=== PATIENT | female | born 1945 | race Caucasian/White ===

== ENCOUNTER 2017-12-15 18:00 | Emergency (ER) | payer MEDICARE, MEDICAID ==
[~2017-12-15] VITALS: Ht 157.5 cm; Wt 72.6 kg
--- NOTE | 2017-12-15 19:22 | NUR ---
SBAR REPORT GIVEN TO TAMIKO LARKIN RN
[2017-12-15 20:03] LABS: BASOPHILS % (AUTO) 0.4 % (0.0-2.0); EOSINOPHILS % (AUTO) 0.5 % (0.0-7.0); HEMATOCRIT 37.1 % (31.2-41.9); HEMOGLOBIN 12.4 g/dL (10.9-14.3); LYMPHOCYTES # (AUTO) 1.2 K/uL (20.0-40.0); LYMPHOCYTES % (AUTO) 19.3 % (20.5-51.5); MEAN CORPUSCULAR HGB CONC 34 g/dL (32.3-35.6); MEAN CORPUSCULAR VOLUME 86.5 fL (75.5-95.3); MONOCYTES # (AUTO) 0.2 K/uL (2.0-10.0); MONOCYTES % (AUTO) 3.9 % (0.0-11.0); NEUTROPHILS # (AUTO) 4.9 K/uL (1.8-8.9); NEUTROPHILS % (AUTO) 75.9 % (38.5-71.5); PLATELET COUNT (AUTO) 233 K/uL (179-408); RED BLOOD CELL COUNT(AUTO) 4.29 MIL/uL (3.63-4.92); WHITE BLOOD COUNT (AUTO) 6.4 K/uL (3.8-11.8)
[2017-12-15 20:11] LABS: CARBON DIOXIDE 24 mmol/L (21-32); CHLORIDE 106 mmol/L (98-107); CREATININE 2.5 mg/dL (0.6-1.3); GLUCOSE 89 mg/dL (74-106); POTASSIUM 4.6 mmol/L (3.5-5.1); UREA NITROGEN, BLOOD 41 mg/dL (7-18)
[2017-12-15 20:17] LABS: ALANINE AMINOTRANSFERASE 22 U/L (14-59); ALKALINE PHOSPHATASE 92 U/L (50-136); ASPARTATE AMINOTRANSFERASE 14 U/L (15-37); BILIRUBIN,DIRECT 0.1 mg/dL (0.0-0.2); BILIRUBIN,TOTAL 0.4 mg/dL (0.2-1.0); TOTAL PROTEIN, SERUM 7.9 g/dL (6.4-8.2)
--- NOTE | 2017-12-15 20:36 | NUR ---
DR LAZCANO WAS CALLED SPOKE WITH DR KEITH REGARDING PATIENT.
--- NOTE | 2017-12-15 20:45 | NUR ---
Patient discharged to home in stable conditon. Written and verbal after care instructions given. Patient verbalizes understanding of instructions. Patient reported reduced abdominal and nausea prior to discharge. PO challenge successfully passed. Patient able to ambulate unassisted with steady gait. Patient left with all personal belongings.
[2017-12-15 20:51] VITALS: BP 154/98
== END 2017-12-15 20:45 | disposition home or self-care (01) ==
LOC: ER 18:04
DX: A08.4 Viral intestinal infection, unspecified (principal); E78.00 Pure hypercholesterolemia, unspecified; I10 Essential (primary) hypertension; E03.9 Hypothyroidism, unspecified; E11.9 Type 2 diabetes mellitus without complications; Z91.040 Latex allergy status; Z79.4 Long term (current) use of insulin
CPT/HCPCS: 36415; 70030-TC; 71045; 85025; 93005; A4663; J7030

== ENCOUNTER 2019-11-13 12:41 | Emergency (ER) | payer MEDICARE, OTHER ==
[~2019-11-13] VITALS: Ht 154.9 cm; Wt 72.6 kg
--- NOTE | 2019-11-13 13:29 | NUR ---
Patient discharged to home in stable conditon. Written and verbal after care instructions given. Patient verbalizes understanding of instructions. Patient ambulated with stable gait.
[2019-11-13 13:31] VITALS: BP 127/83
== END 2019-11-13 13:32 | disposition home or self-care (01) ==
LOC: ER 12:51
DX: B34.9 Viral infection, unspecified (principal); E03.9 Hypothyroidism, unspecified; I10 Essential (primary) hypertension; E78.5 Hyperlipidemia, unspecified; E78.00 Pure hypercholesterolemia, unspecified; E11.9 Type 2 diabetes mellitus without complications; Z91.040 Latex allergy status
CPT/HCPCS: A4663

== ENCOUNTER 2020-04-01 07:10 | Emergency (ER) | payer MEDICARE, OTHER ==
[~2020-04-01] VITALS: Ht 154.9 cm; Wt 68.0 kg
[2020-04-01] MEDS ORDERED: HYDROCODONE/APAP 5-325MG TABLET PO ONE (07:30)
[2020-04-01] MEDS ORDERED: HYDROCODONE/APAP 5-325MG TABLET ONE (07:38)
[2020-04-01 08:01] VITALS: BP 118/60
== END 2020-04-01 08:03 | disposition home or self-care (01) ==
LOC: ER 07:10
DX: M10.9 Gout, unspecified (principal); E11.22 Type 2 diabetes mellitus with diabetic chronic kidney disease; I12.9 Hypertensive chronic kidney disease with stage 1 through stage 4 chronic kidney disease, or unspecified chronic kidney disease; N18.9 Chronic kidney disease, unspecified; Z79.4 Long term (current) use of insulin; E78.00 Pure hypercholesterolemia, unspecified
CPT/HCPCS: A4663

== ENCOUNTER 2021-03-10 19:59 | Inpatient (IN) | payer MEDICARE, OTHER ==
[~2021-03-10] VITALS: Ht 160 cm; Wt 68.0 kg
--- NOTE | 2021-03-10 20:10 | NUR ---
MD Viera in room to do MSE.
[2021-03-10 20:34] LABS: MEAN CORPUSCULAR HEMOGLOBIN 29.1 uug (24.7-32.8); MEAN CORPUSCULAR VOLUME 90.9 fL (75.5-95.3); PLATELET COUNT (AUTO) 244 K/uL (179-408)
[2021-03-10 20:35] LABS: CARBON DIOXIDE 21 mmol/L (21-32); CHLORIDE 110 mmol/L (98-107); CREATININE 3.2 mg/dL (0.6-1.3); GLUCOSE 63 mg/dL (74-106); POTASSIUM 4.8 mmol/L (3.5-5.1); UREA NITROGEN, BLOOD 47 mg/dL (7-18)
--- NOTE | 2021-03-10 20:35 | NUR ---
Patient's blood glucose was 55 upon taking with ACCUCHECK. MD Viera notified. Verbal orders for dextrose 50% given.
[2021-03-10 20:40] LABS: ETHANOL < 3 MG/DL (0-0)
--- NOTE | 2021-03-10 20:40 | NUR ---
Patient states she feels a lot better after administration of D50.
[2021-03-10] MEDS ORDERED: DEXTROSE 50% 50 ML DISP.SYRIN IV ONE (20:45)
[2021-03-10 20:47] LABS: ALANINE AMINOTRANSFERASE 23 U/L (14-59); ALKALINE PHOSPHATASE 85 U/L (50-136); ASPARTATE AMINOTRANSFERASE 21 U/L (15-37); BILIRUBIN,DIRECT < 0.1 mg/dL (0.0-0.2); BILIRUBIN,TOTAL 0.3 mg/dL (0.2-1.0); TOTAL PROTEIN, SERUM 6.9 g/dL (6.4-8.2)
--- NOTE | 2021-03-10 20:58 | NUR ---
Vanessa orellana in [facility] - 03/10/21 at 2118 by SELIN Call for a bed, assigned room 318.
--- NOTE | 2021-03-10 21:01 | NUR ---
Vanessa orellana in [facility] - 03/10/21 at 2118 by SELIN MD Viera connected to MAKEDA Meza from [employer].
[2021-03-10 21:10] LABS: *BILIRUBIN,URIN NEGATIVE (NEGATIVE); *CLARITY,URINE SLIGHTLY CLOUDY (CLEAR); *COLOR,URINE YELLOW (YELLOW); *KETONES,URINE NEGATIVE (NEGATIVE); *UROBILINOGEN,URINE 0.2 E.U./dl (NORMAL); LEUKOCYTE ESTERASE ,URINE 1+ (NEGATIVE); NITRITE, URINE NEGATIVE (NEGATIVE); UGLUCOSE 1+ (NEGATIVE)
[2021-03-10 21:12] LABS: *BLOOD, URINE TRACE LYSED (NEGATIVE)
--- NOTE | 2021-03-10 21:15 | NUR ---
MD Viera requested repeat blood glucose. It was 143, MD Viera made aware. Requested additional blood glucose check 30 minutes from now.
--- NOTE | 2021-03-10 21:18 | NUR ---
Called for room, patient will be going to room 302.
[2021-03-10 21:22] LABS: BACTERIA,URINE FEW /HPF (NONE SEEN); SQUAMOUS EPITHELIAL CELL,UR FEW /HPF (NONE SEEN)
--- NOTE | 2021-03-10 21:39 | NUR ---
video game technician Ac Jones notified that patient is COVID negative.
[2021-03-10] MEDS ORDERED: vitamin d PO (21:41)
[2021-03-10] MEDS ORDERED: CARV25TA2 PO (21:41)
[2021-03-10] MEDS ORDERED: TERA2CAP4 PO (21:41)
[2021-03-10] MEDS ORDERED: LEVO50TA8 PO (21:41)
[2021-03-10] MEDS ORDERED: ASPI81TA31 PO (21:41)
[2021-03-10] MEDS ORDERED: [UNRECOGNIZED DRUG - OTHER] SUBCUT (21:41)
[2021-03-10] MEDS ORDERED: AMLO-212 PO (21:41)
[2021-03-10] MEDS ORDERED: ESOM40CA PO (21:41)
[2021-03-10] MEDS ORDERED: ATOR40TA PO (21:41)
[2021-03-10] MEDS ORDERED: EMPA25TA PO (21:41)
[2021-03-10] MEDS ORDERED: PANT40TA49 PO (21:41)
[2021-03-10] MEDS ORDERED: CALC500T13 PO (21:41)
--- NOTE | 2021-03-10 21:41 | NUR ---
Report given to RAMEZ Medina.
--- NOTE | 2021-03-10 21:45 | NUR ---
Patient's blood sugar dropped to 97 upon recheck. MD Viera made aware. Patient provided food tray to eat.
--- NOTE | 2021-03-10 21:57 | NUR ---
Gab Rey (Daughter)
[2021-03-10] MEDS ORDERED: CEFTRIAXONE 1 G in IV DEXTROSE 5% 50 ML IV ONE (22:00)
--- NOTE | 2021-03-10 22:00 | NUR ---
MD Rudolph clarkd, pending call-back.
[2021-03-10] MEDS ORDERED: CEFTRIAXONE /D5W 50ML IVPB **ER PYXIS IV ONE (22:11)
--- NOTE | 2021-03-10 22:30 | NUR ---
MD Galdamez called back and connected to MD Viera.
--- NOTE | 2021-03-10 22:35 | NUR ---
Patient upgraded from telemetry level of care to telemetry-TD, 3rd floor notifed of change. RAMEZ William states she will check in with RN Web Marketing Specialist Jeison.
--- NOTE | 2021-03-10 22:41 | NUR ---
Report given to RAMEZ Kurtz.
--- NOTE | 2021-03-10 22:41 | NUR ---
Patient will be changed CCU 1 room for TELE-TD care.
[2021-03-10 23:25] VITALS: BP 150/75
--- NOTE | 2021-03-10 23:25 | NUR ---
Rec'd from ER via W/C to CCU #1 bed; KARIS status.
--- NOTE | 2021-03-10 23:30 | NUR ---
Pt. admitted to CCU 1 OVERFLOW, under care of Dr. Galdamez Belongs List completed
[2021-03-11] MEDS ORDERED: Z GUARD REMEDY PASTE 57 GM TUBE TOP PRN (01:00)
[2021-03-11] MEDS ORDERED: ONDANSETRON 4 MG/2 ML VIAL IV PRN (01:00)
[2021-03-11] MEDS ORDERED: ACETAMINOPHEN 325 MG TABLET PO PRN (01:00)
[2021-03-11] MEDS ORDERED: IV D5 1/2 NS 1000 ML 1,000 ML IV PRN (01:00)
[2021-03-11] MEDS ORDERED: ZOLPIDEM 5 MG TABLET PO PRN (01:00)
[2021-03-11] MEDS ORDERED: CEFTRIAXONE 1 G in IV DEXTROSE 5% 50 ML IV SCH ×2 (01:00→22:00)
[2021-03-11] MEDS ORDERED: MAGNESIUM HYDROXIDE 30 ML LIQUID UDC PO PRN (01:00)
[2021-03-11] MEDS ORDERED: CALCIUM CARBONATE 500 MG TAB.CHEW PO PRN ×2 (01:15→11:30)
[2021-03-11] MEDS ORDERED: DEXTROSE 50% 50 ML DISP.SYRIN IV PRN (01:15)
[2021-03-11 04:00] VITALS: BP 139/73
[2021-03-11] MEDS: BLOOD SUGAR DIAGNOSTIC 1 EACH STRIP VI SCH ×5 (04:27→20:10)
[2021-03-11 05:18] LABS: HEMATOCRIT 29.5 % (31.2-41.9); MEAN CORPUSCULAR HEMOGLOBIN 28.6 uug (24.7-32.8); MEAN CORPUSCULAR VOLUME 89.7 fL (75.5-95.3); PLATELET COUNT (AUTO) 216 K/uL (179-408)
[2021-03-11 05:40] LABS: CREATINE KINASE, TOTAL 63 U/L (26-192)
[2021-03-11 05:42] LABS: ALANINE AMINOTRANSFERASE 18 U/L (14-59); ALKALINE PHOSPHATASE 77 U/L (50-136); ASPARTATE AMINOTRANSFERASE 14 U/L (15-37); BILIRUBIN,TOTAL 0.2 mg/dL (0.2-1.0); CARBON DIOXIDE 23 mmol/L (21-32); CHLORIDE 112 mmol/L (98-107); CHOLESTEROL 113 mg/dL (<200); GLUCOSE 96 mg/dL (74-106); HDL CHOLESTEROL 45 mg/dL (40-60); MAGNESIUM 2.9 mg/dL (1.8-2.4); PHOSPHOROUS 4.4 mg/dL (2.5-4.9); POTASSIUM 4.6 mmol/L (3.5-5.1); TOTAL PROTEIN, SERUM 6.3 g/dL (6.4-8.2); TRIGLYCERIDES 69 MG/DL (30-150); UREA NITROGEN, BLOOD 45 mg/dL (7-18)
[2021-03-11 06:07] LABS: *BILIRUBIN,URIN NEGATIVE (NEGATIVE); *CLARITY,URINE CLEAR (CLEAR); *COLOR,URINE YELLOW (YELLOW); *KETONES,URINE NEGATIVE (NEGATIVE); *UROBILINOGEN,URINE 0.2 E.U./dl (NORMAL); LEUKOCYTE ESTERASE ,URINE 1+ (NEGATIVE); NITRITE, URINE NEGATIVE (NEGATIVE); UGLUCOSE 2+ (NEGATIVE)
[2021-03-11 06:20] LABS: *CREATININE,URINE 30.2 mg/dL (30-125); *URINE TOTAL PROTEIN RANDOM 83.4 mg/dL (<150/24HR)
[2021-03-11 06:52] LABS: *BLOOD, URINE TRACE (NEGATIVE)
[2021-03-11] MEDS: LEVOTHYROXINE SODIUM 50 MCG TABLET PO SCH (07:29)
--- NOTE | 2021-03-11 07:52 | NUR ---
0800 blood sugar: 84 - patient currently eating breakfast at this time.
[2021-03-11 08:00] VITALS: BP 146/84
--- NOTE | 2021-03-11 08:05 | NUR ---
Patient able to ambulate to restroom SBA x 2. No s/s of SOB or distress. Denies dizziness or lightheadedness.
[2021-03-11] MEDS: ASPIRIN 81 MG TAB.CHEW PO SCH (08:13)
[2021-03-11] MEDS: CARVEDILOL 25 MG TABLET PO SCH ×2 (08:13→17:32)
[2021-03-11] MEDS: AMLODIPINE 5 MG TABLET PO SCH (08:14)
[2021-03-11] MEDS: HEPARIN SODIUM,PORCINE 5,000 UNITS/ML VIAL SQ SCH ×2 (08:17→20:15)
[2021-03-11] MEDS ORDERED: PANTOPRAZOLE SODIUM 40 MG TABLET.DR PO SCH (09:00)
--- NOTE | 2021-03-11 09:16 | NUR ---
Seen by Dr Galdamez, primary MD. Verbal order received to discontinue IV fluids if patient able to tolerate PO diet and blood sugar stabilizes.
[2021-03-11 11:16] LABS: BACTERIA,URINE FEW /HPF (NONE SEEN); SQUAMOUS EPITHELIAL CELL,UR FEW /HPF (NONE SEEN)
--- NOTE | 2021-03-11 11:19 | NUR ---
Son visiting at bedside. Patient sitting up in bed. Denies pain and dizziness at this time. States that she "feels better today than yesterday."
--- NOTE | 2021-03-11 11:57 | NUR ---
1200 blood glucose check: 189. IV fluids on hold at this time. Will notify
[2021-03-11 12:00] VITALS: BP 147/75
--- NOTE | 2021-03-11 13:20 | NUR ---
Received callback from . New orders received and implemented.
--- NOTE | 2021-03-11 15:25 | NUR ---
Echocardiogram tech at bedside at this time.
[2021-03-11 16:00] VITALS: BP 138/73
--- NOTE | 2021-03-11 17:27 | NUR ---
Room reassignment: 318 - remains telemetry status. Attempted to give report. RN states will callback to received report.
--- NOTE | 2021-03-11 18:01 | NUR ---
Report given to Elle MYRICK. Patient picked up by [place], Charge nurse and Chilo field secretary. VSS. Denies pain or dizziness. No s/s of SOB or distress.
--- NOTE | 2021-03-11 18:05 | NUR ---
RECEIVED PATIENT BY W/CHAIR FROM CCU BED 1 TO ROOM 318 PLACED INTO BED FIXED AND MADE COMFORTABLE PATIENT IS ALERT AND ORIENTED STATED PRIMARY LANGUAGE IS FARSI BUT SHE UNDERSTANDS SOME DIVEHI ORIENTED TO ROOM AND THE HOSPITAL PROTOCOL SKIN IS WARM AND DRY NO S/S OF HYPO/HYPERGLYCEMIC REACTIONS AT THIS TIME TELE APPLIED AND ITS SR RIGHT FOREARM HEPLOCK REMAINS INTACT MADE COMFORTABLE CALL LIGHTS AND PERSONAL BELONGINGS ARE WITHIN EASY REACH PATIENT INSTRUCTED TO CALL TO BE ASSISTED TO THE BATHROOM NEEDED AND SHE EXPRESSED UNDERSTANDING.WILL CONTINUE TO OBSERVE.
[2021-03-11 18:11] VITALS: BP 152/79
--- NOTE | 2021-03-11 20:00 | NUR ---
RECEIVED PATIENT AWAKE IN BED. A/O X4. FARSI SPEAKING BUT ABLE TO MAKE NEEDS KNOWN. DENIES PAIN OR DISCOMFORT. VSS. ON TELE SR. BED ALARM ON. CALL LIGHT IN REACH. ALL NEEDS ATTENDED. WILL CONTINUE TO MONITOR AND ASSESS.
[2021-03-11 20:18] VITALS: BP 157/67
[2021-03-11] MEDS ORDERED: TERAZOSIN 1 MG CAPSULE PO SCH (21:00)
[2021-03-11] MEDS ORDERED: ATORVASTATIN 40 MG TABLET PO SCH (21:00)
[2021-03-12 00:12] VITALS: BP 126/60
[2021-03-12] MEDS: BLOOD SUGAR DIAGNOSTIC 1 EACH STRIP VI SCH ×5 (00:12→15:45)
[2021-03-12 04:18] VITALS: BP 140/63
[2021-03-12] MEDS: LEVOTHYROXINE SODIUM 50 MCG TABLET PO SCH (06:17)
--- NOTE | 2021-03-12 06:39 | NUR ---
PATIENT AWAKE IN BED. SLEPT WELL THROUGHOUT THE NIGHT. ON TELE SR. VS WNL. NEW IV STARTED TO LEFT FA #22 GAUGE. CALL LIGHT IN REACH. ALL NEEDS ATTENDED. WILL CONTINUE TO MONITOR AND ASSESS.
[2021-03-12] MEDS ORDERED: PANTOPRAZOLE SODIUM 40 MG TABLET.DR PO SCH (07:00)
--- NOTE | 2021-03-12 08:04 | NUR ---
BLOOD SUGAR AT THIS TIME IS [address] ESPINOSA PATIENT IS AWAKE ALERT AND AWARE WITH LANGUAGE BARRIERS ABLE TO MAKE SIMPLE NEEDS KNOWN NO S/S OF HYPO/HYPERGLYCEMIC REACTIONS AT THIS TIME CALL LIGHTS AND PERSONAL BELONGINGS ARE WITHIN EASY REACH AT THIS TIME WILL CONTINUE TO OBSERVE.
[2021-03-12] MEDS: AMLODIPINE 5 MG TABLET PO SCH (08:20)
[2021-03-12] MEDS: CARVEDILOL 25 MG TABLET PO SCH (08:20)
[2021-03-12] MEDS: ASPIRIN 81 MG TAB.CHEW PO SCH (08:20)
[2021-03-12] MEDS: HEPARIN SODIUM,PORCINE 5,000 UNITS/ML VIAL SQ SCH (08:25)
--- NOTE | 2021-03-12 11:00 | NUR ---
DR ALEJO MATHIAS [facility] HERE TO SEE PATIENT AND STATED THAT PATIENT SHOULD ALSO BE SEEN BY THE EPIC GROUP WHO SHOULD MAKE THE DECISION RE DISCHARGE
--- NOTE | 2021-03-12 11:45 | NUR ---
[facility] PROVIDER AMARILYS VARELA HERE AND I NOTIFIED HIM THAT PATIENT NEEDS TO BE SEEN BY THE [facility] DR RAMON WAS THE ONE THAT SAW HER YESTERDAY AND HE STATED [facility] WILL SEE PATIENT.
[2021-03-12 11:48] VITALS: BP 154/82
--- NOTE | 2021-03-12 11:53 | NUR ---
BLOOD SUGAR AT THIS TIME IS 220 PATIENT HAS NO ORDER FOR SLIDING SCALE COVERAGE AMARILYS VARELA MANAGER CONSTRUCTION HERE AND AWARE STATED [facility] WILL REVIEW ORDERS.NO S/S OF HYPO/HYPERGLYCEMIC REACTIONS AT THIS TIME WILL CONTINUE TO OBSERVE.
--- NOTE | 2021-03-12 13:00 | NUR ---
PATIENTS DAUGHTER DRE HERE AND AWARE THAT WE ARE WAITING FOR THE [facility] PROVIDER TO SEE PATIENT AND MOST LIKELY WILL DISCHARGE HER AND SHE STATED [facility] WILL BE ABLE TO TAKE HER HOME TONITE
--- NOTE | 2021-03-12 14:10 | NUR ---
ORDER NOTED BY AMARILYS VARELA TO DISCHARGE PATIENT HOME TODAY WILL CALL PATIENTS DAUGHTER TO INFORM HER.
--- NOTE | 2021-03-12 14:21 | NUR ---
PER THE THUMB SEWER WILL ORDER HOME HEALTH TO ASSIST PATIENT WITH HER HOME MEDICATIONS.
--- NOTE | 2021-03-12 15:46 | NUR ---
PATIENT IS BEING PREPPED FOR DISCHARGE WILL BE PICKED UP BY HER DAUGHTER AWAITING FOR INFORMATION ON THE HOME HEALTH FROM THE FIRER BOILER PATIENT AWARE.
[2021-03-12 15:51] VITALS: BP 150/71
--- NOTE | 2021-03-12 17:01 | NUR ---
PATIENT DISCHARGED PICKED UP BY HER DAUGHTER DRE IN SATISFACTORY CONDITION WITH DISCHARGE INSTRUCTIONS AND SHE WAS INSTRUCTED TO STOP JADIANCE,FOLLOW UP HER INSULIN REGIMEN WITH HER PRIMARY DOCTOR AND FOLLOW UP WITH NEPHROLOGY REGARDING KIDNEY TRANSPLANT AND THEY EXPRESSED UNDERSTANDING.INFORMATION ON HOME HEALTH IS NOT AVAILABLE YET SO PATIENTS DAUGHTER INSTRUCTED TO CALL TOMORROW AND TALK TO THE GIMP BUTTONHOLE MACHINE OPERATOR RE DETAILS OF HOME FRITZ AND SHE EXPRESSED UNDERSTANDING .PATIENT WAS DISCHARGED WILL ALL OF HER PERSONAL BELONGINGS NO S/S OF HYPOGLYCEMIC REACTIONS AT THIS TIME.
[2021-03-13 10:06] LABS: ALBUMIN 2.8 g/dL (2.9-4.4); ALPHA-1-GLOBULIN 0.2 g/dL (0.0-0.4); ALPHA-2-GLOBULIN 0.8 g/dL (0.4-1.0); BETA GLOBULIN 0.9 g/dL (0.7-1.3); GAMMA GLOBULIN 0.8 g/dL (0.4-1.8); GLOBULIN, TOTAL 2.8 g/dL (2.2-3.9); M-SPIKE Not Observed g/dL (Not Observed)
== END 2021-03-12 17:01 | disposition home health service (06) | DRG 949 ==
LOC: ER 20:01 → EDBD 20:01 → CCU 22:58 → TELE3 03-11 18:16
PROVIDERS: ADMIT Internal Medicine; ATTEND Internal Medicine
DX: Z79.4 Long term (current) use of insulin (principal); N18.4 Chronic kidney disease, stage 4 (severe); N17.9 Acute kidney failure, unspecified; E11.649 Type 2 diabetes mellitus with hypoglycemia without coma; E78.5 Hyperlipidemia, unspecified; R55 Syncope and collapse; I12.9 Hypertensive chronic kidney disease with stage 1 through stage 4 chronic kidney disease, or unspecified chronic kidney disease; E11.22 Type 2 diabetes mellitus with diabetic chronic kidney disease; E03.9 Hypothyroidism, unspecified; D63.8 Anemia in other chronic diseases classified elsewhere; N13.9 Obstructive and reflux uropathy, unspecified; E86.9 Volume depletion, unspecified; Z20.822 Contact with and (suspected) exposure to COVID-19; T38.3X5A Adverse effect of insulin and oral hypoglycemic [antidiabetic] drugs, initial encounter; Y92.009 Unspecified place in unspecified non-institutional (private) residence as the place of occurrence of the external cause; Z79.84 Long term (current) use of oral hypoglycemic drugs; E66.9 Obesity, unspecified
CPT/HCPCS: 36415; 70030-TC; 71045; 83605; 83735; 83970; 84100; 84155; 84156; 84165; 84300; 84443; 85025; 85730; 87040; 87086; 93005; 93307; A4663; G0378; G0480; J0696; J1644; J3490; J7050; J7060

== ENCOUNTER 2021-05-10 01:25 | Emergency (ER) | payer MEDICARE, OTHER ==
[~2021-05-10 01:25] MED LIST: AMLO-212 PO; ASPI81TA31 PO; ATOR40TA PO; CALC500T13 PO; CARV25TA2 PO; ESOM40CA PO; LEVO50TA8 PO; PANT40TA49 PO; TERA2CAP4 PO; [UNRECOGNIZED DRUG - OTHER] SUBCUT; vitamin d PO
--- NOTE | 2021-05-10 02:10 | NUR ---
Patient was not traiged or seen by ERMD.
== END 2021-05-10 02:12 | disposition left against medical advice (07) ==
LOC: ER 01:37
DX: Z53.21 Procedure and treatment not carried out due to patient leaving prior to being seen by health care provider (principal)

== ENCOUNTER 2021-08-09 12:00 | Emergency (ER) | payer MEDICARE, OTHER ==
[~2021-08-09] VITALS: Ht 160 cm; Wt 68.0 kg
[2021-08-09] MEDS ORDERED: IV NORMAL SALINE 1000 ML BAG IV ONE (12:15)
[2021-08-09] MEDS ORDERED: ONDANSETRON 4 MG/2 ML VIAL IV ONE (12:15)
[2021-08-09] MEDS ORDERED: FAMOTIDINE. 20 MG/2 ML VIAL IV ONE ×2 (12:15→12:54)
[2021-08-09] MEDS ORDERED: GLIM2TAB31 PO (12:23)
[2021-08-09] MEDS ORDERED: EMPA25TA PO (12:23)
[2021-08-09] MEDS ORDERED: HYDR-4077 PO (12:23)
[2021-08-09 12:43] LABS: HEMATOCRIT 29.7 % (31.2-41.9); MEAN CORPUSCULAR HEMOGLOBIN 28.2 uug (24.7-32.8); MEAN CORPUSCULAR VOLUME 86.9 fL (75.5-95.3); PLATELET COUNT (AUTO) 213 K/uL (179-408)
[2021-08-09 12:50] LABS: CARBON DIOXIDE 22 mmol/L (21-32); CHLORIDE 105 mmol/L (98-107); GLUCOSE 196 mg/dL (74-106); POTASSIUM 4.1 mmol/L (3.5-5.1); UREA NITROGEN, BLOOD 49 mg/dL (7-18)
[2021-08-09] MEDS ORDERED: ONDANSETRON 4 MG/2 ML VIAL ONE (12:54)
[2021-08-09 12:56] LABS: ALANINE AMINOTRANSFERASE 11 U/L (14-59); ALKALINE PHOSPHATASE 87 U/L (50-136); ASPARTATE AMINOTRANSFERASE 12 U/L (15-37); BILIRUBIN,DIRECT 0.1 mg/dL (0.0-0.2); BILIRUBIN,TOTAL 0.4 mg/dL (0.2-1.0); LIPASE 133 U/L (73-393)
[2021-08-09] MEDS ORDERED: ONDA4TAB11 PO (13:33)
[2021-08-09 13:43] LABS: *BILIRUBIN,URIN NEGATIVE (NEGATIVE); *BLOOD, URINE 1+ (NEGATIVE); *CLARITY,URINE CLOUDY (CLEAR); *COLOR,URINE YELLOW (YELLOW); *KETONES,URINE NEGATIVE (NEGATIVE); *UROBILINOGEN,URINE 0.2 E.U./dl (NORMAL); LEUKOCYTE ESTERASE ,URINE 1+ (NEGATIVE); NITRITE, URINE POSITIVE (NEGATIVE); PH,URINE 5.5 (5.0-8.0); UGLUCOSE 2+ (NEGATIVE)
[2021-08-09] MEDS ORDERED: CEPH500C2 PO (13:49)
--- NOTE | 2021-08-09 13:58 | NUR ---
Patient discharged to home in stable condition. Written and verbal after care instructions given. Patient verbalizes understanding of instructions. Stressed follow up or return to ER for worsening s/s.pt says feels better and is ready to go home.
[2021-08-09 13:59] VITALS: BP 139/71
[2021-08-09 17:50] LABS: BACTERIA,URINE 2 /HPF (NONE SEEN); SQUAMOUS EPITHELIAL CELL,UR FEW /HPF (NONE SEEN)
== END 2021-08-09 13:59 | disposition home or self-care (01) ==
LOC: ER 12:00
DX: R11.2 Nausea with vomiting, unspecified (principal); E86.0 Dehydration; N83.201 Unspecified ovarian cyst, right side; N39.0 Urinary tract infection, site not specified; R00.0 Tachycardia, unspecified; K65.4 Sclerosing mesenteritis; I12.9 Hypertensive chronic kidney disease with stage 1 through stage 4 chronic kidney disease, or unspecified chronic kidney disease; N18.9 Chronic kidney disease, unspecified; E11.22 Type 2 diabetes mellitus with diabetic chronic kidney disease; Z79.84 Long term (current) use of oral hypoglycemic drugs; E03.9 Hypothyroidism, unspecified; Z79.890 Hormone replacement therapy; E78.5 Hyperlipidemia, unspecified; Z79.82 Long term (current) use of aspirin; I45.10 Unspecified right bundle-branch block
CPT/HCPCS: 36415; 74176; 80048; 80076; 81001; 83690; 84484; 85025; 87086; 93005; 96361; 96374; 96375; 99285; J2405; J3490; 70030-TC; A4663; J7030

== ENCOUNTER 2022-06-15 18:05 | Emergency (ER) | payer MEDICARE, OTHER ==
[~2022-06-15] VITALS: Ht 157.5 cm; Wt 52.2 kg
[~2022-06-15 18:05] MED LIST changes: -AMLO-212 PO; -CALC500T13 PO; +CEPH500C2 PO; +EMPA25TA PO; -ESOM40CA PO; +GLIM2TAB31 PO; +HYDR-4077 PO; +ONDA4TAB11 PO; -TERA2CAP4 PO; -[UNRECOGNIZED DRUG - OTHER] SUBCUT
[2022-06-15 19:23] LABS: HEMATOCRIT 26.9 % (31.2-41.9); MEAN CORPUSCULAR HEMOGLOBIN 30.6 uug (24.7-32.8); MEAN CORPUSCULAR VOLUME 93.4 fL (75.5-95.3); PLATELET COUNT (AUTO) 299 K/uL (179-408)
[2022-06-15 19:30] LABS: CARBON DIOXIDE 20 mmol/L (21-32); CHLORIDE 107 mmol/L (98-107); CREATININE 4.3 mg/dL (0.6-1.3); GLUCOSE 247 mg/dL (74-106); POTASSIUM 5.2 mmol/L (3.5-5.1); UREA NITROGEN, BLOOD 37 mg/dL (7-18)
[2022-06-15 19:32] LABS: URIC ACID 6.9 mg/dL (2.6-6.0)
[2022-06-15] MEDS ORDERED: COLC0.6C3 PO (19:49)
[2022-06-15] MEDS ORDERED: OXYC-128 PO (19:49)
[2022-06-15] MEDS ORDERED: OXYCODONE/APAP 5-325 MG TABLET ONE (19:58)
[2022-06-15] MEDS ORDERED: OXYCODONE/APAP 5-325 MG TABLET PO ONE (20:00)
--- NOTE | 2022-06-15 20:31 | NUR ---
Patient discharged to home in stable condition. Written and verbal after care instructions given. Patient verbalizes understanding of instructions. Stressed follow up or return to ER for worsening s/s. Patient out of E.R. via wheel chair, assisted patient to transfer from chair to car. No falls noted and vital signs were stable with no signs of distress and all belongings were taken. Instructed not to drive and to be driven home by a private vehicle by son.
[2022-06-15 20:33] VITALS: BP 145/76
== END 2022-06-15 20:34 | disposition home or self-care (01) ==
LOC: ER 18:15
DX: E11.22 Type 2 diabetes mellitus with diabetic chronic kidney disease (principal); M10.361 Gout due to renal impairment, right knee; N18.6 End stage renal disease; Z99.2 Dependence on renal dialysis; Z79.4 Long term (current) use of insulin; E03.9 Hypothyroidism, unspecified; E78.00 Pure hypercholesterolemia, unspecified; D72.810 Lymphocytopenia; D64.9 Anemia, unspecified; Z91.040 Latex allergy status; Z79.84 Long term (current) use of oral hypoglycemic drugs; Z79.899 Other long term (current) drug therapy; Z79.82 Long term (current) use of aspirin; Z79.890 Hormone replacement therapy
CPT/HCPCS: 36415; 84550; 85025; A4663

== ENCOUNTER 2022-09-21 18:13 | Inpatient (IN) | payer MEDICARE, OTHER ==
[~2022-09-21] VITALS: Ht 157.5 cm; Wt 63.5 kg
[~2022-09-21 18:13] MED LIST changes: +COLC0.6C3 PO; +OXYC-128 PO
[2022-09-21 19:08] LABS: HEMATOCRIT 25.6 % (31.2-41.9); MEAN CORPUSCULAR HEMOGLOBIN 29.4 uug (24.7-32.8); MEAN CORPUSCULAR VOLUME 92.3 fL (75.5-95.3); PLATELET COUNT (AUTO) 349 K/uL (179-408)
[2022-09-21] MEDS ORDERED: ACETAMINOPHEN 325 MG TABLET PO ONE (19:15)
[2022-09-21 19:17] LABS: CARBON DIOXIDE 28 mmol/L (21-32); CHLORIDE 104 mmol/L (98-107); POTASSIUM 4.5 mmol/L (3.5-5.1); UREA NITROGEN, BLOOD 35 mg/dL (7-18)
[2022-09-21 19:21] LABS: GLUCOSE 300 mg/dL (74-106)
[2022-09-21] MEDS ORDERED: ACETAMINOPHEN 325 MG TABLET ONE (19:24)
[2022-09-21 19:30] LABS: ALANINE AMINOTRANSFERASE 35 U/L (14-59); ALKALINE PHOSPHATASE 118 U/L (50-136); ASPARTATE AMINOTRANSFERASE 37 U/L (15-37); BILIRUBIN,DIRECT 0.1 mg/dL (0.0-0.2); BILIRUBIN,TOTAL 0.3 mg/dL (0.2-1.0); TOTAL PROTEIN, SERUM 6.1 g/dL (6.4-8.2)
--- NOTE | 2022-09-21 19:50 | NUR ---
Called [facility] for panel call. Harriet PALLET STONE POSITIONER agronomy supervisor. Waiting for call back.
--- NOTE | 2022-09-21 20:00 | NUR ---
Patient ambulated to bathroom standby assist. Small void, yellow urine.
--- NOTE | 2022-09-21 21:20 | NUR ---
Patient has been admitted by Harriet ASHFORD. Pending admission.
[2022-09-21] MEDS ORDERED: ACETAMINOPHEN 325 MG TABLET PO PRN (21:45)
[2022-09-21] MEDS ORDERED: MAGNESIUM HYDROXIDE 30 ML LIQUID UDC PO PRN (21:45)
[2022-09-21] MEDS ORDERED: REMEDY ESSENTIAL ZINC PASTE 113 GM TP PRN (21:45)
[2022-09-21] MEDS ORDERED: ONDANSETRON 4 MG/2 ML VIAL IV PRN (21:45)
--- NOTE | 2022-09-21 22:04 | NUR ---
Called third floor, spoke with Dary MYRICK for TELE bed. Currently no bed avaliable.
--- NOTE | 2022-09-21 23:32 | NUR ---
Called pharmacist for Loveanox 40mg. Waiting for verification
[2022-09-21] MEDS: ENOXAPARIN SODIUM 30 MG/0.3 ML DISP.SYRIN SUBCUT SCH (23:58)
[2022-09-21] MEDS ORDERED: ENOXAPARIN SODIUM 30 MG/0.3 ML DISP.SYRIN ONE (23:59)
--- NOTE | 2022-09-22 01:40 | NUR ---
Patient ambulated to the bathroom standby assist. Small void. yellow urine.
--- NOTE | 2022-09-22 01:47 | NUR ---
Patient given sugar free jello and tea.
[2022-09-22] MEDS ORDERED: ACETAMINOPHEN 325 MG TABLET ONE (03:51)
--- NOTE | 2022-09-22 06:44 | NUR ---
Called third floor for TELE bed. Spoke with Dary MYRICK. Still no bed avaliable.
--- NOTE | 2022-09-22 07:03 | NUR ---
Report given to Maryanne MYRICK
[2022-09-22 07:58] LABS: HEMATOCRIT 24.7 % (31.2-41.9); MEAN CORPUSCULAR HEMOGLOBIN 29.3 uug (24.7-32.8); MEAN CORPUSCULAR VOLUME 92.2 fL (75.5-95.3); PLATELET COUNT (AUTO) 318 K/uL (179-408)
[2022-09-22 08:03] LABS: CARBON DIOXIDE 28 mmol/L (21-32); CHLORIDE 105 mmol/L (98-107); CHOLESTEROL 117 mg/dL (<200); CREATININE 4.2 mg/dL (0.6-1.3); GLUCOSE 262 mg/dL (74-106); HDL CHOLESTEROL 53 mg/dL (40-60); MAGNESIUM 2.2 mg/dL (1.8-2.4); PHOSPHOROUS 3.9 mg/dL (2.5-4.9); POTASSIUM 4.7 mmol/L (3.5-5.1); TRIGLYCERIDES 58 MG/DL (30-150); UREA NITROGEN, BLOOD 37 mg/dL (7-18)
--- NOTE | 2022-09-22 09:49 | NUR ---
Received pt. from via wheel-chair, accompanied by rn. Patient AAOx3. vitals of Hr of 95, sbp of 148/71, saturation of 94% on RA. RR 21. 97.1 temp. Patient situated in bed with 1 person assistance. Over all skin c.d.i. with few scratches BUE.
[2022-09-22 10:00] VITALS: BP 124/61
--- NOTE | 2022-09-22 10:30 | NUR ---
Spinneret Person DR. Kinney in to examine pt. at the same time Pt's daughter calling for an update over the phone. Dr. Mead discuss care plan with daughter at this time.
--- NOTE | 2022-09-22 10:35 | NUR ---
Pt's daughter calling back one more time to inquire if pt. have a visitor.
[2022-09-22 12:00] VITALS: BP 154/72
[2022-09-22] MEDS ORDERED: hydrALAZINE HCL 50 MG TABLET PO PRN (12:15)
[2022-09-22] MEDS ORDERED: DEXTROSE 50% 50 ML DISP.SYRIN IV PRN (12:15)
[2022-09-22] MEDS ORDERED: AMLO-212 PO (12:30)
[2022-09-22] MEDS ORDERED: ERGO500040 PO (12:30)
[2022-09-22] MEDS: BLOOD SUGAR DIAGNOSTIC 1 EACH STRIP VI SCH ×3 (12:47→21:00)
[2022-09-22] MEDS: INSULIN REGULAR, HUMAN 300 UNIT/3 ML VIAL SQ PRN (12:50)
[2022-09-22] MEDS: PANTOPRAZOLE SODIUM 40 MG TABLET.DR PO SCH (12:54)
[2022-09-22] MEDS: CARVEDILOL 25 MG TABLET PO SCH ×2 (12:54→21:37)
[2022-09-22] MEDS: ASPIRIN 81 MG TAB.CHEW PO SCH (12:54)
[2022-09-22] MEDS: GLIMEPIRIDE 2 MG TABLET PO SCH ×2 (12:55→21:26)
[2022-09-22] MEDS: LEVOTHYROXINE SODIUM 50 MCG TABLET PO SCH (12:59)
[2022-09-22] MEDS ORDERED: CHOLECALCIFEROL 1,000 UNIT TABLET PO SCH (13:00)
[2022-09-22 16:00] VITALS: BP 141/113
[2022-09-22 20:00] VITALS: BP 124/73
--- NOTE | 2022-09-22 20:20 | NUR ---
DR RAMON CALLED FOR PAIN AND ANXIETY MEDICATION, ORDERS OBTAINED
[2022-09-22] MEDS: MORPHINE SULFATE 2 MG/1 ML DISP.SYRIN IV PRN (20:46)
[2022-09-22] MEDS: ALPRAZOLAM 0.5 MG TABLET PO PRN (21:26)
[2022-09-22] MEDS: ATORVASTATIN 40 MG TABLET PO SCH (21:26)
[2022-09-22] MEDS: ENOXAPARIN SODIUM 30 MG/0.3 ML DISP.SYRIN SUBCUT SCH (21:27)
[2022-09-23] MEDS: MORPHINE SULFATE 2 MG/1 ML DISP.SYRIN IV PRN ×2 (00:43→07:02)
[2022-09-23 01:00] VITALS: BP 120/80
[2022-09-23 04:00] VITALS: BP 101/55
[2022-09-23 05:01] LABS: HEMATOCRIT 24.9 % (31.2-41.9); MEAN CORPUSCULAR HEMOGLOBIN 28.9 uug (24.7-32.8); MEAN CORPUSCULAR VOLUME 91.8 fL (75.5-95.3); PLATELET COUNT (AUTO) 292 K/uL (179-408)
[2022-09-23 05:09] LABS: CARBON DIOXIDE 29 mmol/L (21-32); CHLORIDE 103 mmol/L (98-107); CREATININE 3.2 mg/dL (0.6-1.3); GLUCOSE 182 mg/dL (74-106); MAGNESIUM 1.9 mg/dL (1.8-2.4); PHOSPHOROUS 3.4 mg/dL (2.5-4.9); POTASSIUM 4.2 mmol/L (3.5-5.1); UREA NITROGEN, BLOOD 27 mg/dL (7-18)
[2022-09-23] MEDS: PANTOPRAZOLE SODIUM 40 MG TABLET.DR PO SCH (06:55)
[2022-09-23] MEDS: LEVOTHYROXINE SODIUM 50 MCG TABLET PO SCH (06:55)
[2022-09-23] MEDS: BLOOD SUGAR DIAGNOSTIC 1 EACH STRIP VI SCH ×4 (06:59→21:56)
--- NOTE | 2022-09-23 07:30 | NUR ---
REPORT GIVEN TO RAMEZ KLEIN
--- NOTE | 2022-09-23 07:30 | NUR ---
TX PT TO RM 309 WITH BELONGINGS
--- NOTE | 2022-09-23 07:50 | NUR ---
RECEIVED PATIENT BY BED FROM CCU TO ROOM 309 WITH MAIN DX OF HEART FAILURE/PULMONARY EDEMA.PATIENT IS ALERT AND AWARE WITH LANGUAGE DIFFICULTIES ON ROOM AIR AT THIS TIME NO SOB NOTED TELE IS SR WITH NO ECTOPY.ORIENTED TO ROOM AND FACILITY PROTOCOL MADE COMFORTABLE WILL OBSERVE.
[2022-09-23] MEDS: INSULIN REGULAR, HUMAN 300 UNIT/3 ML VIAL SQ PRN ×3 (08:25→17:23)
[2022-09-23] MEDS: AMLODIPINE 5 MG TABLET PO SCH (08:44)
[2022-09-23] MEDS: GLIMEPIRIDE 2 MG TABLET PO SCH ×2 (08:45→16:25)
[2022-09-23] MEDS: CARVEDILOL 25 MG TABLET PO SCH ×2 (08:45→16:25)
[2022-09-23] MEDS: ASPIRIN 81 MG TAB.CHEW PO SCH (08:45)
--- NOTE | 2022-09-23 09:30 | NUR ---
NOTED O2 SAT IS AT 88 PERCENT STARTED ON O2 AT 2L/M BY NASAL CANULA WITH SATS AT THIS TIME UP TO 93-94 PERCENT MADE COMFORTABLE WILL OBSERVE.
[2022-09-23 12:41] VITALS: BP 96/52
--- NOTE | 2022-09-23 13:11 | NUR ---
PATIENT SEEN BY THE PHYSICAL THERAPIST FOR AMBULATION IN THE HALLWAY HAND HELD WITH FAIR ENDURANCE AND BACK TO HER ROOM IS AT HER BEDSIDE AT THIS TIME.
--- NOTE | 2022-09-23 14:00 | NUR ---
BLOOD PRESSURE AT THIS TIME IS 96/52 AND PATIENT IS REQUESTING FOR MORPHINE CALLED [facility] AND NOTIFIED HIM AND HE STATED WILL ORDER AN ORAL PAIN MEDICATIONS FOR HER.
[2022-09-23] MEDS: HYDROCODONE/APAP 5-325MG TABLET PO PRN ×2 (14:40→21:44)
--- NOTE | 2022-09-23 14:40 | NUR ---
NORCO GIVEN ORDERED PATIENT IS SITTING ON THE CHAIR RESTING RIGHT HAND REMAIN SWOLLEN ELEVATED ON PILLOW TO REDUCE SWELLING WILL CONTINUE TO OBSERVE.
[2022-09-23 16:00] VITALS: BP 123/62
--- NOTE | 2022-09-23 16:30 | NUR ---
PATIENT IS SITTING ON THE CHAIR SLEEPING ASSISTED BACK INTO BED MADE COMFORTABLE WITH RIGHT HAND ELEVATED AT THIS TIME.
--- NOTE | 2022-09-23 17:00 | NUR ---
PATIENTS GRAND DAUGHTER HERE AND REQUESTED FOR A COVID TEST TO BE DONE TO HER MOTHER BUT I REASSURED HER THAT PATIENT TESTED NEGATIVE 2 DAYS AGO BUT I CALLED [facility] AND LEFT HIM A MESSAGE TO SEE IF HE WANTS TO ORDER COVID TEST AWAITING FOR RETURN CALL.
[2022-09-23] MEDS: ALPRAZOLAM 0.5 MG TABLET PO PRN (17:24)
--- NOTE | 2022-09-23 17:24 | NUR ---
CUTTER AND PRESSER HERE PATIENT PREMEDICATED WITH XANAX ORDERED.DIALYSIS STARTED ORDERED.
--- NOTE | 2022-09-23 18:18 | NUR ---
DIALYSIS REMAINS IN PROGRESS ORDERED AND PATIENT IS TOLERATING PROCEDURE WELL
[2022-09-23 20:00] VITALS: BP 122/65
[2022-09-23] MEDS ORDERED: LIDOCAINE/PRILOCAINE 5 GM CREAM.GM. TP ONE (20:00)
[2022-09-23] MEDS ORDERED: LIDOCAINE/PRILOCAINE 5 GM CREAM.GM. ONE (20:11)
[2022-09-23] MEDS: ATORVASTATIN 40 MG TABLET PO SCH (21:40)
[2022-09-23] MEDS: ENOXAPARIN SODIUM 30 MG/0.3 ML DISP.SYRIN SUBCUT SCH (21:47)
[2022-09-24] VITALS: BP 139/65
[2022-09-24 04:00] VITALS: BP 129/66
[2022-09-24 06:42] LABS: CARBON DIOXIDE 31 mmol/L (21-32); CHLORIDE 102 mmol/L (98-107); CREATININE 2.8 mg/dL (0.6-1.3); GLUCOSE 62 mg/dL (74-106); POTASSIUM 3.8 mmol/L (3.5-5.1); UREA NITROGEN, BLOOD 21 mg/dL (7-18)
[2022-09-24 06:52] LABS: HEMATOCRIT 25.5 % (31.2-41.9); MEAN CORPUSCULAR HEMOGLOBIN 28.6 uug (24.7-32.8); MEAN CORPUSCULAR VOLUME 92.2 fL (75.5-95.3); PLATELET COUNT (AUTO) 280 K/uL (179-408)
[2022-09-24] MEDS: LEVOTHYROXINE SODIUM 50 MCG TABLET PO SCH (06:52)
[2022-09-24] MEDS: PANTOPRAZOLE SODIUM 40 MG TABLET.DR PO SCH (06:52)
[2022-09-24] MEDS: BLOOD SUGAR DIAGNOSTIC 1 EACH STRIP VI SCH ×2 (06:53→07:49)
[2022-09-24] MEDS: GLIMEPIRIDE 2 MG TABLET PO SCH (08:45)
[2022-09-24] MEDS: ASPIRIN 81 MG TAB.CHEW PO SCH (08:45)
[2022-09-24] MEDS: CARVEDILOL 25 MG TABLET PO SCH (09:20)
[2022-09-24] MEDS: AMLODIPINE 5 MG TABLET PO SCH (09:20)
[2022-09-24] MEDS ORDERED: HYDR-3972 PO (10:38)
[2022-09-24 12:00] VITALS: BP 109/50
--- NOTE | 2022-09-24 12:00 | NUR ---
Pt. discharged home and picked up by her daughter. Noted to be stable upon the discharge. Body check done and picture included in pt. chart. Personal belonging returned to pt. Discharge instruction printed and handed to pt.
[2022-09-24] MEDS ORDERED: HEPARIN SODIUM,PORCINE 5,000 UNITS/ML VIAL SQ SCH (21:00)
[2022-09-24] MEDS ORDERED: ENOXAPARIN SODIUM 30 MG/0.3 ML DISP.SYRIN SUBCUT SCH (21:00)
[2022-09-25 12:07] LABS: HEPATITIS B SURFACE AG Negative (Negative)
[2022-09-26] MEDS ORDERED: ERGOCALCIFEROL 50,000 UNIT CAPSULE PO SCH (09:00)
== END 2022-09-24 12:15 | disposition home or self-care (01) | DRG 291 ==
LOC: ER 18:13 → TRANSITION 23:17 → CCU 09-22 09:18 → TELE3 09-23 07:30
PROVIDERS: ADMIT Nurse Practitioner Acute Care; ATTEND Nurse Practitioner Acute Care
PROC: 5A1D70Z Performance of Urinary Filtration, Intermittent, Less than 6 Hours Per Day (ICD-10-PCS; principal; 2022-09-22)
DX: I13.2 Hypertensive heart and chronic kidney disease with heart failure and with stage 5 chronic kidney disease, or end stage renal disease (principal); I50.33 Acute on chronic diastolic (congestive) heart failure; N18.6 End stage renal disease; E44.0 Moderate protein-calorie malnutrition; J90 Pleural effusion, not elsewhere classified; E11.22 Type 2 diabetes mellitus with diabetic chronic kidney disease; Z79.84 Long term (current) use of oral hypoglycemic drugs; Z99.2 Dependence on renal dialysis; D63.1 Anemia in chronic kidney disease; E03.9 Hypothyroidism, unspecified; E83.51 Hypocalcemia; E88.09 Other disorders of plasma-protein metabolism, not elsewhere classified; K21.9 Gastro-esophageal reflux disease without esophagitis; Z86.718 Personal history of other venous thrombosis and embolism; Z79.4 Long term (current) use of insulin; M10.9 Gout, unspecified; M89.8X9 Other specified disorders of bone, unspecified site; I25.10 Atherosclerotic heart disease of native coronary artery without angina pectoris; M25.531 Pain in right wrist; E83.9 Disorder of mineral metabolism, unspecified
CPT/HCPCS: 36415; 71045; 73110; 83735; 84100; 84484; 85025; 86706; 87340; 93005; A4663; G0378; J1650; J1815; J2270